=== PATIENT | male | born 1970 | race Caucasian/White ===

== ENCOUNTER 2022-08-12 09:56 | Emergency (ER) | payer BC, OTHER ==
[2022-08-12 10:05] VITALS: BP 135/95; PULSE 93; RESP 17; TEMP 98.4; BMI 27.1
[2022-08-12] MEDS ORDERED: ACETAMINOPHEN 325 MG TABLET (FP) PO ONE (10:33)
[2022-08-12] MEDS ORDERED: ACETAMINOPHEN 500 MG TABLET (FP) ONE (11:47)
[2022-08-12] MEDS ORDERED: ACETAMINOPHEN 325 MG TABLET (FP) ONE (11:50)
== END 2022-08-12 11:48 | disposition home or self-care (01) ==
LOC: JER 09:56
DX: G62.9 Polyneuropathy, unspecified (principal)
CPT/HCPCS: 99283-25

== ENCOUNTER 2022-08-26 11:12 | Observation (INO) | payer BC ==
[2022-08-26] MEDS ORDERED: FAMOTIDINE 20 MG/50 ML IVPB 20 MG/50 ML MG IVPB ONE ×2 (12:20→13:32)
[2022-08-26] MEDS ORDERED: MAG HYDROX/AL HYDROX/SIMETH 30 ML UNIT-DOSE CUP PO ONE (12:20)
[2022-08-26 13:21] LABS: EOS % 0.5 % (0-4.5); HEMATOCRIT 44.9 % (35.4-49); LYMPH % 17.8 % (8-40); MCH 31.4 pg (25.7-33.7); MCHC 35.5 g/dl (32.0-35.9); MEAN CELL VOLUME 88.3 fl (80-96); MEAN PLT VOLUME 8.4 fl (7.5-11.1); MONO % 6.8 % (3.8-10.2); NEUT % 73.9 % (42.8-82.8); PLATELET COUNT 268 10^3/uL (134-434); RBC 5.09 M/mm3 (4.00-5.60); WHITE BLOOD COUNT 7.3 K/mm3 (4.0-10.0)
[2022-08-26] MEDS ORDERED: MAG HYDROX/AL HYDROX/SIMETH 30 ML UNIT-DOSE CUP ONE (13:32)
[2022-08-26 13:52] LABS: CALCIUM 9.8 mg/dL (8.5-10.1)
[2022-08-26 13:53] LABS: ALBUMIN 4.2 g/dl (3.4-5.0)
[2022-08-26 13:56] LABS: CREATININE 1.1 mg/dL (0.55-1.3)
[2022-08-26 13:57] LABS: TOT PROT 7.4 g/dl (6.4-8.2)
[2022-08-26 13:58] LABS: BILIRUBIN,TOTAL 0.7 mg/dL (0.2-1)
[2022-08-26 14:02] LABS: BLOOD UREA NITROGEN 18.3 mg/dL (7-18)
[2022-08-26 15:20] LABS: PH,URINE 5.5 (5.0-8.0); URINE APPEARANCE CLEAR; URINE BILIRUBIN NEGATIVE (NEGATIVE); URINE COLOR YELLOW; URINE GLUCOSE (UA) NEGATIVE (NEGATIVE); URINE KETONE NEGATIVE (NEGATIVE); URINE LEUK ESTERASE NEGATIVE (NEGATIVE); URINE NITRITE NEGATIVE (NEGATIVE); URINE PROTEIN NEGATIVE (NEGATIVE); URINE UROBILINOGEN 0.2 mg/dL (0.2-1.0)
[2022-08-26] MEDS ORDERED: GABAPENTIN 100 MG CAPSULE PO ONE (17:13)
[2022-08-26] MEDS ORDERED: ACETAMINOPHEN 1000 MG/100 ML BAG IVPB ONE ×2 (17:13→23:18)
[2022-08-26] MEDS ORDERED: GABAPENTIN 100 MG CAPSULE ONE (17:14)
[2022-08-26] MEDS ORDERED: ACETAMINOPHEN INJECTION 100 ML IVPB ONE ×2 (17:14→17:39)
[2022-08-26] MEDS ORDERED: MELATONIN 5 MG TABLETS PO PRN (23:18)
[2022-08-27 07:00] VITALS: BMI 26.0
[2022-08-27 10:04] LABS: HEMATOCRIT 44.5 % (35.4-49); HEMOGLOBIN 15.7 GM/dL (11.7-16.9); MCHC 35.2 g/dl (32.0-35.9); MEAN CELL VOLUME 88.2 fl (80-96); MEAN PLT VOLUME 8.9 fl (7.5-11.1); PLATELET COUNT 268 10^3/uL (134-434); RBC 5.05 M/mm3 (4.00-5.60); RDW 13.3 % (11.9-15.9); WHITE BLOOD COUNT 6.9 K/mm3 (4.0-10.0)
[2022-08-27 10:31] LABS: CALCIUM 9.7 mg/dL (8.5-10.1)
[2022-08-27 10:32] LABS: BLOOD UREA NITROGEN 16.6 mg/dL (7-18)
[2022-08-27 10:35] LABS: CREATININE 1.1 mg/dL (0.55-1.3)
[2022-08-27] MEDS: ENOXAPARIN NA (PORCINE) 40 MG/0.4 ML DISP.SYRIN SQ SCH ×2 (12:06→12:09)
[2022-08-27] MEDS: ACETAMINOPHEN 325 MG TABLET (FP) PO PRN ×3 (12:30→21:44)
[2022-08-27] MEDS ORDERED: MELATONIN 5 MG TABLETS PO PRN (20:49)
[2022-08-28] MEDS: ENOXAPARIN NA (PORCINE) 40 MG/0.4 ML DISP.SYRIN SQ SCH (10:07)
[2022-08-28] MEDS: ACETAMINOPHEN 325 MG TABLET (FP) PO PRN (13:22)
[2022-08-28 15:26] VITALS: RESP 18
[2022-08-28 18:22] VITALS: BP 137/83; PULSE 72; TEMP 98.6
[2022-08-28] MEDS ORDERED: NORTRIPTYLINE HCL 25 MG CAPSULE PO SCH (22:00)
== END 2022-08-28 19:15 | disposition home or self-care (01) ==
LOC: JER 11:12 → JERBED 14:14 → J5S 19:33
PROVIDERS: ADMIT Internal Medicine; ATTEND Internal Medicine
PROC: 3E033NZ Introduction of Analgesics, Hypnotics, Sedatives into Peripheral Vein, Percutaneous Approach (ICD-10-PCS; principal; 2022-08-26)
PROC: 3E033GC Introduction of Other Therapeutic Substance into Peripheral Vein, Percutaneous Approach (ICD-10-PCS; 2022-08-26)
DX: G62.9 Polyneuropathy, unspecified (principal); N41.9 Inflammatory disease of prostate, unspecified
CPT/HCPCS: 0241U-QW; 36415; 71045-TC-FY; 72125-TC; 72141-TC; 72146-TC; 72148-TC; 80048; 80053; 81003; 82607; 82746; 83690; 84484; 85025; 85027; 85651; 86038; 86140; 86780; 87086; 93005; 93010; 95860-TC; 99285-25; G0378

== ENCOUNTER 2022-09-20 04:01 | Day surgery (SDC) | payer BC ==
[2022-09-17 19:42] VITALS: BMI 25.0
[~2022-09-20 04:01] MED LIST: BUPIVACAINE HCL/PF 0.5% (5MG/ML) 10 ML VIAL NR ONE; LIDOCAINE 1% P/F 10 MG/ML VIAL PNB ONE
[2022-09-20 10:05] VITALS: RESP 18
[2022-09-20] MEDS ORDERED: BUPIVACAINE HCL/PF 0.5% (5MG/ML) 10 ML VIAL ONE (10:30)
[2022-09-20] MEDS ORDERED: BUPIVACAINE HCL/PF 0.5% (5MG/ML) 10 ML VIAL NR ONE (10:45)
[2022-09-20] MEDS ORDERED: LIDOCAINE 1% P/F 10 MG/ML VIAL PNB ONE (10:52)
[2022-09-20 11:41] VITALS: PULSE 60
[2022-09-20 12:22] VITALS: BP 110/70; TEMP 98.8
== END 2022-09-20 12:15 | disposition home or self-care (01) ==
LOC: JASU-SURG 04:01
PROVIDERS: ATTEND Pain Medicine Pain Medicine
PROC: 3E0T3BZ Introduction of Anesthetic Agent into Peripheral Nerves and Plexi, Percutaneous Approach (ICD-10-PCS; principal; 2022-09-20 11:30)
DX: M47.812 Spondylosis without myelopathy or radiculopathy, cervical region (principal)
CPT/HCPCS: 76000-TC-FY